=== PATIENT | female | born 1970 | race Caucasian/White ===

== ENCOUNTER 2019-08-11 13:28 | Inpatient (IN) | payer BC ==
[~2019-08-11] VITALS: Ht 160 cm; Wt 108.5 kg
[2019-08-31] VITALS (11 sets, daily range): BP systolic 109–148; BP diastolic 55–79; PULSE 94–103; TEMP 98.1–98.9
--- NOTE | 2019-08-31 06:17 | NUR ---
TO RM AT 0540- CALL LIGHT IN REACH ALERT ORIENTED X3, VERBALIZED UNDERSTANDING AND SIGNED CONSENT.
[2019-08-31] MEDS ORDERED: STOOL SOFTENER100 M2 PO (06:18)
[2019-08-31] MEDS ORDERED: MULTI VITAMINS1 TAB PO (06:18)
[2019-08-31] MEDS ORDERED: ZOFRAN 4MG T4 MG/TAB PO (06:19)
[2019-08-31] MEDS ORDERED: NATURAL IRON65 MG PO (06:19)
[2019-08-31] MEDS ORDERED: PRILOTC PO (06:20)
[2019-08-31] MEDS ORDERED: PROAIR HFA0.09 MG/AC IH (06:27)
[2019-08-31] MEDS ORDERED: TYLENOL 500MG500 MG PO (06:28)
--- NOTE | 2019-08-31 07:17 | NUR ---
TO BATHROOM AND VOIDED RECEIVED NEW WARM BLANKET
--- NOTE | 2019-08-31 13:07 | NUR ---
1230 PT TO FLOOR. SEAN BLANK TO ASSIST WITH TRANSFER AND VS AT THIS TIME. 1245 PT RESTING COMFORTABLY IN BED WITH CALL LIGHT. 3L NC, VSS. ASKS FOR ICE CHIPS AT THIS TIME. INCISION BANDAGE DRY AND CLEAN. LOZANO IN PLACE AND DRAINING.
[2019-09-01 03:15] VITALS: BP 107/48; PULSE 104; TEMP 99
[2019-09-01 07:00] VITALS: BP 118/78; PULSE 76; TEMP 98.7
[2019-09-01 07:34] LABS: BASO % 0.3 % (0.0-2.0); EOS % 0.4 % (0-4.0); GRAN # 7.4 (1.4-6.5); GRAN % 74.8 % (42.2-75.2); LYMPH # 1.8 (1.2-3.4); LYMPH % 17.8 % (20.0-51.0); MEAN CELL VOLUME 84 fl (80.0-100.0); MEAN CORPUSCULAR HGB CONC 32 g/dl (33.0-37.0); MEAN PLATELET VOLUME 11.2 fl (7.4-10.4); MONO # 0.6 (0.1-0.6); MONO % 6.2 % (1.7-9.3); PLATELET COUNT 189 K/mm3 (130-400); RED BLOOD COUNT 3.71 M/mm3 (4.10-5.30); REDCELL DISTRIBUTION WIDTH-CV 16.5 % (11.5-14.5)
[2019-09-01 07:35] LABS: HEMOGLOBIN 9.8 g/dl (12.5-16.0); MEAN CORPUSCULAR HEMOGLOBIN 26 pg (27.0-31.0)
[2019-09-01 07:45] LABS: CALCIUM 8.7 mg/dL (8.4-10.2); CREATININE, serum 0.67 (0.52-1.25); POTASSIUM 3.8 mmol/L (3.4-5.0)
[2019-09-01] MEDS ORDERED: IBU600 MG PO (08:44)
[2019-09-01] MEDS ORDERED: PERCOCET 325 MG1 TA2 PO (08:45)
== END 2019-09-01 09:54 | disposition home or self-care (01) | DRG 742 ==
LOC: INPTSU 08-31 05:23 → OB 08-31 07:30 → SURG 08-31 07:30 → OB 08-31 12:30
PROVIDERS: ADMIT Obstetrics & Gynecology
PROC: 0UT90ZZ Resection of Uterus, Open Approach (ICD-10-PCS; principal; 2019-08-31 07:30)
PROC: 0UT70ZZ Resection of Bilateral Fallopian Tubes, Open Approach (ICD-10-PCS; 2019-08-31 07:30)
PROC: 0UT10ZZ Resection of Left Ovary, Open Approach (ICD-10-PCS; 2019-08-31 07:30)
DX: D25.9 Leiomyoma of uterus, unspecified (principal); Z68.41 Body mass index [BMI] 40.0-44.9, adult; D64.9 Anemia, unspecified; E66.9 Obesity, unspecified; K21.9 Gastro-esophageal reflux disease without esophagitis; Z13.220 Encounter for screening for lipoid disorders; Z80.0 Family history of malignant neoplasm of digestive organs; J45.909 Unspecified asthma, uncomplicated
CPT/HCPCS: A4314; J0690; J1100; J1170; J1885; J2405; J2704; J2710; J3010; J7120

== ENCOUNTER 2020-09-21 07:57 | Day surgery (SDC) | payer BC ==
[~2020-09-21] VITALS: Ht 160 cm; Wt 114.6 kg
[~2020-09-21 07:57] MED LIST: IBU600 MG PO; MULTI VITAMINS1 TAB PO; NATURAL IRON65 MG PO; PERCOCET 325 MG1 TA2 PO; PRILOTC PO; PROAIR HFA0.09 MG/AC IH; STOOL SOFTENER100 M2 PO; TYLENOL 500MG500 MG PO; ZOFRAN 4MG T4 MG/TAB PO
--- NOTE | 2020-09-21 09:15 | NUR ---
Pt questioned about COVID status. Pt tested twice per week at current job. Has had consistend negative tests.
[2020-09-21 09:25] VITALS: BP 150/90; PULSE 92; TEMP 98.8
[2020-09-21] MEDS ORDERED: PROBIOTIC FORMU1 CAP PO (09:33)
[2020-09-21] MEDS ORDERED: NORCO 325 MG-51 TAB PO ×5 (10:38→11:15)
--- NOTE | 2020-09-21 11:48 | NUR ---
Report received from Drea [employer].
[2020-09-21 11:55] VITALS: BP 154/71; PULSE 75; TEMP 98.5
--- NOTE | 2020-09-21 11:55 | NUR ---
Pt transferred from PACU to [place] [id number] via cart and this RN. O2 NC 2L in place on pt. Monitors on and alarms in place. Call light within reach. Pt desires to wait on any food or drink to allow "cramp" pains to subside. Pt denies nausea.
[2020-09-21 12:00] VITALS: BP 152/75; PULSE 77
--- NOTE | 2020-09-21 12:10 | NUR ---
Pt states "cramp" pain may be gas. Pt asks for water and crackers to help relieve some of this "cramping."
[2020-09-21 12:15] VITALS: BP 161/82; PULSE 75
--- NOTE | 2020-09-21 12:15 | NUR ---
Pt takes food and drink well with much stated satisfaction. No complications stated by patient.
[2020-09-21 12:30] VITALS: BP 157/75; PULSE 81
--- NOTE | 2020-09-21 12:40 | NUR ---
Pt states ready for discharge.
[2020-09-21 12:45] VITALS: BP 147/73; PULSE 78
--- NOTE | 2020-09-21 12:55 | NUR ---
Pt ambulates to restroom with this RN assist without complications.
--- NOTE | 2020-09-21 13:07 | NUR ---
Discharge instructions given to pt. All questions answered to her satisfaction. Handed to her are a thank you card, discharge instructions, diagnosis information, and a discharge medicine information.
--- NOTE | 2020-09-21 13:10 | NUR ---
Pt transferred out of hospital via wheelchair and this RN assist to private vehicle driven by Dad.
== END 2020-09-21 13:10 | disposition home or self-care (01) ==
LOC: SDCO 07:57
DX: N20.1 Calculus of ureter (principal); J45.909 Unspecified asthma, uncomplicated; Z90.710 Acquired absence of both cervix and uterus; K21.9 Gastro-esophageal reflux disease without esophagitis
CPT/HCPCS: C1769; C2617; J1100; J1885; J2250; J2405; J2704; J3010; J7120; Q9967

== ENCOUNTER 2021-09-24 12:54 | Emergency (ER) | payer BC ==
[~2021-09-24] VITALS: Ht 160 cm; Wt 90.9 kg
[~2021-09-24 12:54] MED LIST changes: +NORCO 325 MG-51 TAB PO; +PROBIOTIC FORMU1 CAP PO
[2021-09-24 13:05] VITALS: TEMP 98
[2021-09-24 13:23] LABS: COLLECTION METHOD CLEAN CATCH
[2021-09-24 13:28] LABS: BASO # 0.1 K/mm3 (0.0-0.2); BASO % 0.6 % (0.0-2.0); EOS # 0.2 K/mm3 (0.0-0.7); EOS % 2.8 % (0.0-4.0); GRAN # 5.2 K/mm3 (1.4-6.5); HEMATOCRIT 38.1 % (37.0-47.0); HEMOGLOBIN 12.8 g/dl (12.5-16.0); LYMPH # 2.1 K/mm3 (1.2-3.4); LYMPH % 25.1 % (20.0-51.0); MEAN CELL VOLUME 89 fl (80.0-100.0); MEAN CORPUSCULAR HEMOGLOBIN 30 pg (27-31); MEAN CORPUSCULAR HGB CONC 34 g/dl (33.0-37.0); MEAN PLATELET VOLUME 11.4 fl (7.4-10.4); MONO # 0.6 K/mm3 (0.1-0.6); MONO % 6.9 % (1.7-9.3); PLATELET COUNT 205 K/mm3 (130-400); RED BLOOD COUNT 4.28 M/mm3 (4.10-5.30)
[2021-09-24 13:31] LABS: AMORPHOUS CRYSTAL Present (NOT PRESENT); MUCOUS Present (NOT PRESENT); PH 6 (5-8); URINE APPEARANCE Cloudy (CLEAR/HAZY); URINE BACTERIA Rare /hpf (NONE SEEN); URINE BILIRUBIN Negative (NEGATIVE); URINE BLOOD Negative (NEGATIVE); URINE COLOR Yellow (YELLOW); URINE GLUCOSE Negative (NEGATIVE); URINE KETONE Negative (NEGATIVE); URINE LEUKOCYTE ESTERASE 1+ (NEGATIVE); URINE NITRATE Negative (NEGATIVE); URINE PROTEIN(semi-quant) Negative (NEGATIVE); URINE UROBILINOGEN Negative (NEGATIVE)
[2021-09-24 13:47] LABS: ALBUMIN 3.9 gm/dL (3.5-5.0); BILIRUBIN,TOTAL 0.6 mg/dL (0.2-1.2); CREATININE, serum 0.71 mg/dL (0.57-1.11); POTASSIUM 4.2 mmol/L (3.5-4.5); TOTAL PROTEIN 7.4 gm/dL (6.2-8.1)
[2021-09-24] MEDS ORDERED: CIPRO 500MG TA500 MG PO (15:45)
[2021-09-24] MEDS ORDERED: PERCOCET 325 MG1 TA2 PO (15:45)
[2021-09-24 16:00] VITALS: BP 131/91; PULSE 92
== END 2021-09-24 16:03 | disposition home or self-care (01) ==
LOC: COL.ER 12:54
PROVIDERS: Personal Emergency Response Attendant
DX: N39.0 Urinary tract infection, site not specified (principal); K65.4 Sclerosing mesenteritis; Z87.442 Personal history of urinary calculi; Z32.02 Encounter for pregnancy test, result negative
CPT/HCPCS: J2270; J2405; J7030

== ENCOUNTER 2021-11-15 10:10 | Emergency (ER) | payer BC ==
[~2021-11-15] VITALS: Ht 160 cm; Wt 109.1 kg
[~2021-11-15 10:10] MED LIST changes: +CIPRO 500MG TA500 MG PO
[2021-11-15 10:21] VITALS: TEMP 98.5
[2021-11-15] MEDS ORDERED: LIPITOR 40MG TA40 MG PO (10:37)
[2021-11-15 10:47] LABS: BASO % 0.6 % (0.0-2.0); EOS # 0.2 K/mm3 (0.0-0.7); EOS % 3.2 % (0.0-4.0); GRAN # 4.7 K/mm3 (1.4-6.5); GRAN % 66.4 % (42.2-75.2); HEMATOCRIT 39.5 % (37.0-47.0); HEMOGLOBIN 13.5 g/dl (12.5-16.0); LYMPH # 1.6 K/mm3 (1.2-3.4); LYMPH % 22.6 % (20.0-51.0); MEAN CELL VOLUME 88 fl (80.0-100.0); MEAN CORPUSCULAR HEMOGLOBIN 30 pg (27-31); MEAN CORPUSCULAR HGB CONC 34 g/dl (33.0-37.0); MEAN PLATELET VOLUME 11.4 fl (7.4-10.4); MONO # 0.5 K/mm3 (0.1-0.6); MONO % 6.8 % (1.7-9.3); PLATELET COUNT 189 K/mm3 (130-400); RED BLOOD COUNT 4.48 M/mm3 (4.10-5.30); REDCELL DISTRIBUTION WIDTH-CV 12.1 % (11.5-14.5)
[2021-11-15 10:52] LABS: COLLECTION METHOD CLEAN CATCH
[2021-11-15 11:00] LABS: MUCOUS Present (NOT PRESENT); PH 6 (5-8); URINE APPEARANCE Hazy (CLEAR/HAZY); URINE BACTERIA Moderate /hpf (NONE SEEN); URINE BILIRUBIN Negative (NEGATIVE); URINE BLOOD Negative (NEGATIVE); URINE COLOR Yellow (YELLOW); URINE GLUCOSE Negative (NEGATIVE); URINE KETONE Trace (NEGATIVE); URINE LEUKOCYTE ESTERASE Negative (NEGATIVE); URINE NITRATE Negative (NEGATIVE); URINE PROTEIN(semi-quant) Negative (NEGATIVE); URINE RBC 0-2 /hpf (0-2); URINE UROBILINOGEN Negative (NEGATIVE)
[2021-11-15 11:01] LABS: ALANINE AMINOTRANSFERASE 57 U/L (0-55); ALBUMIN 4.4 gm/dL (3.5-5.0); ALKALINE PHOSPHATASE 69 U/L (40-150); ANION GAP 10 mmol/L (7-16); AST,SGOT 30 U/L (5-34); BILIRUBIN,TOTAL 0.6 mg/dL (0.2-1.2); BLOOD UREA NITROGEN 16 mg/dL (7-19); CALCIUM 9.1 mg/dL (8.4-10.2); CARBON DIOXIDE 25 mmol/L (22-29); CHLORIDE 105 mmol/L (98-107); CREATININE, serum 0.73 mg/dL (0.57-1.11); GLUCOSE 113 mg/dL (70-99); POTASSIUM 4.1 mmol/L (3.5-4.5); SODIUM 140 mmol/L (136-145); TOTAL PROTEIN 7.7 gm/dL (6.2-8.1)
[2021-11-15 11:08] LABS: TROPONIN-I < 0.010 ng/mL (0.00-0.033)
[2021-11-15] MEDS ORDERED: ZOFRAN ODT4 MG PO (13:22)
[2021-11-15] MEDS ORDERED: DRAMAMINE LESS25 MG PO (13:22)
[2021-11-15 13:37] VITALS: BP 146/85; PULSE 76
== END 2021-11-15 13:38 | disposition home or self-care (01) ==
LOC: COL.ER 10:10
PROVIDERS: Physician Assistant
DX: H61.23 Impacted cerumen, bilateral (principal); R11.0 Nausea
CPT/HCPCS: J2405; J7030

== ENCOUNTER → 2022-01-01 | Emergency (ER) | payer BC ==
[~2022-01-01] VITALS: Ht 160 cm; Wt 90.9 kg
[~2022-01-01] MED LIST changes: +DRAMAMINE LESS25 MG PO; +LIPITOR 40MG TA40 MG PO; +MEDROL 4MG DOSPA4 MG PO; +ZOFRAN ODT4 MG PO
[2022-01-01 21:45] VITALS: BP 118/76; PULSE 86; TEMP 98
[2022-01-01 22:38] LABS: COLLECTION METHOD CLEAN CATCH
[2022-01-01 22:49] LABS: MUCOUS Present (NOT PRESENT); PH 5 (5-8); SQUAMOUS EPITHELIAL 0-2 /hpf (0-10); URINE APPEARANCE Hazy (CLEAR/HAZY); URINE BACTERIA Many /hpf (NONE SEEN); URINE BILIRUBIN Negative (NEGATIVE); URINE BLOOD Negative (NEGATIVE); URINE COLOR Yellow (YELLOW); URINE GLUCOSE Negative (NEGATIVE); URINE KETONE Negative (NEGATIVE); URINE LEUKOCYTE ESTERASE Negative (NEGATIVE); URINE NITRATE Negative (NEGATIVE); URINE PROTEIN(semi-quant) Negative (NEGATIVE); URINE RBC None Seen /hpf (0-2); URINE UROBILINOGEN Negative (NEGATIVE)
== END ==
LOC: COL.ER 21:25
PROVIDERS: Nurse Practitioner
DX: M54.50 Low back pain, unspecified (principal)
CPT/HCPCS: J1885; J2360

== ENCOUNTER 2022-01-22 07:12 | Day surgery (SDC) | payer BC ==
[~2022-01-22] VITALS: Ht 162.6 cm; Wt 111.3 kg
[2022-01-22] MEDS ORDERED: GAS-X ULTRA ST180 MG PO (08:01)
[2022-01-22 09:15] VITALS: BP 107/68; PULSE 77; TEMP 97.6
--- NOTE | 2022-01-22 09:27 | NUR ---
0915 - PT arrives from procedure drowsy but oriented. PT assisted from cart to chair 2:1 RN assist, gait is mildly unstead. Monitors applied and vitals obtainted. Warm blankets provided. Non-slip socks remain on. PT oriented to room and call ball, within reach. PT denies pain and nausea. 0930 - VSS. PT ambulated to bathroom without difficulty, then back to her chair and monitors reapplied. PT continues to deny nausea, and has finisher her snack and drink. Call ball remains within reach.
[2022-01-22 09:30] VITALS: BP 115/72; PULSE 73
[2022-01-22 09:45] VITALS: BP 130/78; PULSE 73
--- NOTE | 2022-01-22 10:00 | NUR ---
0945 - PT states javier nausea. IV Zofran administered. VSS. PT expressed desire to be discharged home. Call ball remains within reach.
--- NOTE | 2022-01-22 10:15 | NUR ---
1010 - IV discontinued. Catheter tip intact. Pressure bandage applied. NO redness or swelling noted. DC instructions and educational material reveiwed with the PT who verbalized understanding and signed the realted paperwork. Questions answered to PT satisfaction. PT denied needing RN assistance changing into personal clothes, call ball remains within reach if needed. 1015 - PT dismissed from endo via wheelchair to the PT entrence by Gloria ESTRADA. PT has DC packet in hand and personal belongings. PT transferred into the care of her visitor, who is present to drive a private car.
[2022-01-22 10:27] VITALS: BP 121/81; PULSE 76; TEMP 97.7
== END 2022-01-22 10:15 | disposition home or self-care (01) ==
LOC: SDCO 07:12
DX: K29.70 Gastritis, unspecified, without bleeding (principal)
CPT/HCPCS: J2405; J2704; J7030

== ENCOUNTER → 2022-01-30 | Outpatient (CLI) | payer BC ==
[~2022-01-30] MED LIST changes: +GAS-X ULTRA ST180 MG PO
== END ==
LOC: MC.RAD 08:00
DX: Z12.31 Encounter for screening mammogram for malignant neoplasm of breast (principal); N63.21 Unspecified lump in the left breast, upper outer quadrant

== ENCOUNTER → 2022-02-13 | Outpatient (CLI) | payer BC | LOC: COL.RAD 06:34 | DX: K76.0 Fatty (change of) liver, not elsewhere classified (principal); K21.9 Gastro-esophageal reflux disease without esophagitis ==

== ENCOUNTER 2022-02-24 12:27 | Emergency (ER) | payer BC ==
[~2022-02-24] VITALS: Ht 160 cm; Wt 113.6 kg
[2022-02-24 12:39] VITALS: TEMP 98
[2022-02-24 13:30] VITALS: BP 154/80; PULSE 76
== END 2022-02-24 13:30 | disposition home or self-care (01) ==
LOC: COL.ER 12:27
DX: G56.02 Carpal tunnel syndrome, left upper limb (principal); Z87.891 Personal history of nicotine dependence; Z28.310 Unvaccinated for COVID-19

== ENCOUNTER 2022-03-17 09:00 | Outpatient (RCR) | payer BC | END 2022-04-02 | disposition still patient (30) | LOC: WSOT | DX: M77.8 Other enthesopathies, not elsewhere classified (principal); G56.02 Carpal tunnel syndrome, left upper limb ==

== ENCOUNTER → 2022-03-18 | Outpatient (CLI) | payer BC | LOC: COL.RAD 06:51 | DX: R11.2 Nausea with vomiting, unspecified (principal) | CPT/HCPCS: A9541 ==

== ENCOUNTER 2022-04-01 08:30 | Outpatient (RCR) | payer BC | END 2022-04-02 | disposition home or self-care (01) | LOC: WSPT | DX: G56.02 Carpal tunnel syndrome, left upper limb (principal) ==

== ENCOUNTER 2022-04-03 06:16 | Day surgery (SDC) | payer BC ==
[~2022-04-03] VITALS: Ht 160 cm; Wt 109.6 kg
[2022-04-03 06:38] VITALS: BP 131/75; PULSE 96; TEMP 97.1
[2022-04-03 09:05] VITALS: BP 104/86; PULSE 80
--- NOTE | 2022-04-03 09:05 | NUR ---
PATIENT RETURNS TO BAY 3 AND TRANSFERS FROM CART TO RECLINER WITH TWO PERSON ASSIST. POSITIONED IN RECLINER FOR COMFORT. SPOUSE IN ROOM. CALL LIGHT IN REACH. ALLOWED TO REST. OFFERS NO COMPLAINTS OF PAIN OR NAUSEA.
[2022-04-03 09:20] VITALS: BP 116/75; PULSE 84
--- NOTE | 2022-04-03 09:20 | NUR ---
RETURNS TO ROOM AFTER VOIDING. MORE AWAKE AND GAIT STEADY. SIPPING ON SPRITE.
[2022-04-03 09:35] VITALS: BP 124/79; PULSE 76
--- NOTE | 2022-04-03 09:35 | NUR ---
CONTINUES TO REST AND SIP ON SPRITE. IV INFUSED AND DISCONTINUED.
--- NOTE | 2022-04-03 09:47 | NUR ---
DR. MORGAN IN THE ROOM AND TALKS WITH THE PATIENT. ALL QUESTIONS ANSWERED.
--- NOTE | 2022-04-03 09:54 | NUR ---
PATIENT IS DRESSING SELF. TOLERATES ACTIVITY WELL.
--- NOTE | 2022-04-03 10:00 | NUR ---
DISMISSAL INSTRUCTIONS GIVEN AND SIGNED. PATIENT VOICED UNDERSTANDING.
--- NOTE | 2022-04-03 10:04 | NUR ---
DISCHARGED TO HOME DRIVEN BY SPOUSE PER PRIVATE VEHICLE AND TAKEN TO VEHICLE PER WHEELCHAIR AND ASSISTED INTO CAR WITH DISMISSAL INSTRUCTIONS IN HAND.
== END 2022-04-03 10:04 | disposition home or self-care (01) ==
LOC: SDCO 06:16
DX: Z12.11 Encounter for screening for malignant neoplasm of colon (principal); D12.5 Benign neoplasm of sigmoid colon; Z80.0 Family history of malignant neoplasm of digestive organs; K21.9 Gastro-esophageal reflux disease without esophagitis; E11.9 Type 2 diabetes mellitus without complications; E66.01 Morbid (severe) obesity due to excess calories; Z79.51 Long term (current) use of inhaled steroids
CPT/HCPCS: J2704; J7030

== ENCOUNTER 2022-08-30 09:52 | Emergency (ER) | payer BC ==
[~2022-08-30] VITALS: Ht 160 cm; Wt 90.9 kg
[2022-08-30 10:01] VITALS: BP 144/83; TEMP 98.4
[2022-08-30 10:45] LABS: COLLECTION METHOD CLEAN CATCH
[2022-08-30 11:03] LABS: PH 5.5 (5.0-8.5); URINE APPEARANCE Hazy (CLEAR/HAZY); URINE BLOOD Negative (NEGATIVE); URINE COLOR Yellow (YELLOW); URINE GLUCOSE Negative (NEGATIVE); URINE KETONE Negative (NEGATIVE); URINE NITRATE Negative (NEGATIVE); URINE PROTEIN(semi-quant) Negative (NEGATIVE); URINE UROBILINOGEN 0.2 E.U/dL (0.2-1.0)
[2022-08-30 11:06] LABS: MUCOUS Present (NOT PRESENT); URINE BACTERIA Rare /hpf (NONE SEEN); URINE RBC 0-2 /hpf (0-2)
[2022-08-30 11:07] LABS: ALBUMIN 3.9 gm/dL (3.5-5.0); BILIRUBIN,TOTAL 0.7 mg/dL (0.2-1.2); CALCIUM 9.4 mg/dL (8.4-10.2); CREATININE, serum 0.68 mg/dL (0.57-1.11); POTASSIUM 3.7 mmol/L (3.5-4.5); TOTAL PROTEIN 7.4 gm/dL (6.2-8.1)
[2022-08-30 11:20] LABS: BASO % 0.6 % (0.0-2.0); EOS # 0.2 K/mm3 (0.0-0.7); EOS % 2.4 % (0.0-4.0); GRAN # 4.4 K/mm3 (1.4-6.5); GRAN % 66.4 % (42.2-75.2); HEMATOCRIT 37.9 % (37.0-47.0); HEMOGLOBIN 12.3 g/dl (12.5-16.0); LYMPH # 1.6 K/mm3 (1.2-3.4); LYMPH % 23.6 % (20.0-51.0); MEAN CELL VOLUME 92 fl (80.0-100.0); MEAN CORPUSCULAR HEMOGLOBIN 30 pg (27-31); MEAN CORPUSCULAR HGB CONC 33 g/dl (33.0-37.0); MEAN PLATELET VOLUME 11.2 fl (7.4-10.4); MONO # 0.4 K/mm3 (0.1-0.6); MONO % 6.4 % (1.7-9.3); PLATELET COUNT 153 K/mm3 (130-400); RED BLOOD COUNT 4.11 M/mm3 (4.10-5.30); REDCELL DISTRIBUTION WIDTH-CV 12.8 % (11.5-14.5)
[2022-08-30] MEDS ORDERED: FLEXERIL 1010 MG/TAB PO (11:56)
[2022-08-30 12:08] VITALS: PULSE 89
== END 2022-08-30 12:09 | disposition home or self-care (01) ==
LOC: COL.ER 09:52
PROVIDERS: Nurse Practitioner
DX: M54.50 Low back pain, unspecified (principal); F17.200 Nicotine dependence, unspecified, uncomplicated
CPT/HCPCS: J1885